=== PATIENT | female | born 1995 | race Caucasian/White ===

== ENCOUNTER 2017-11-01 22:31 | Outpatient (CLI) | payer OTHER, MEDICAID ==
[2017-11-01 23:10] LABS: APPEARANCE,URINE CLEAR; BILIRUBIN,URINE NEGATIVE (NEGATIVE); COLOR,URINE YELLOW; GLUCOSE, URINE NEGATIVE (NEGATIVE); KETONES,URINE NEGATIVE (NEGATIVE); LEUKOCYTE ESTERASE,URINE TRACE (NEGATIVE); NITRITE,URINE NEGATIVE (NEGATIVE); PROTEIN,URINE NEGATIVE (NEGATIVE); URINE SPECIFIC GRAVITY 1.012; UROBILINOGEN,URINE NEGATIVE mg/dL (<2.0)
[2017-11-01 23:31] LABS: URINE AMPHETAMINES SCREEN NEGATIVE; URINE BARBITURATES SCREEN NEGATIVE; URINE BENZODIAZEPINES SCREEN NEGATIVE; URINE COCAINE SCREEN NEGATIVE; URINE MARIJUANA (THC) SCREEN NEGATIVE; URINE METHADONE SCREEN NEGATIVE; URINE PHENCYCLIDINE SCREEN NEGATIVE
--- NOTE | 2017-11-01 23:52 | Non Stress Test Report ---
Non Stress Test Datetime Report Generated by CPN: 11/01/2017 23:52 DEMOGRAPHIC Test Number: 1 EGA NST: 33.0 INDICATION Indication for Study: Ordered by Provider MONITORING Time on Monitor: 11/01/2017 22:52 Time off Monitor: 11/01/2017 23:24 NST Duration: 32 NST INTERVENTIONS NST Interventions: PO Hydration Physician Notified NST: Dr Sosa BABY A: [id number] BABY A Movement : Present Contraction Frequency : irregular FHR Baseline : 140 Accelerations : 15X15 Decelerations : None Variability : Moderate 6-25bpm NST Review: Meets Criteria for Reactive NST NST Review and Verified By : Elana Min RN NST Results: Reactive NST REPORT Report Trigger: Send Report
== END 2017-11-02 00:35 | disposition home or self-care (01) ==
LOC: LC 22:31
PROVIDERS: ATTEND Obstetrics & Gynecology
PROC: 4A1HXCZ Monitoring of Products of Conception, Cardiac Rate, External Approach (ICD-10-PCS; principal; 2017-11-01)
DX: O47.03 False labor before 37 completed weeks of gestation, third trimester (principal); Z3A.33 33 weeks gestation of pregnancy
CPT/HCPCS: 59025; 80307; 81001

== ENCOUNTER 2017-11-06 22:45 | Outpatient (CLI) | payer OTHER, MEDICAID ==
[2017-11-06 23:25] LABS: APPEARANCE,URINE CLEAR; BILIRUBIN,URINE NEGATIVE (NEGATIVE); COLOR,URINE STRAW; GLUCOSE, URINE NEGATIVE (NEGATIVE); KETONES,URINE NEGATIVE (NEGATIVE); LEUKOCYTE ESTERASE,URINE NEGATIVE (NEGATIVE); NITRITE,URINE NEGATIVE (NEGATIVE); PROTEIN,URINE NEGATIVE (NEGATIVE); URINE SPECIFIC GRAVITY 1.003; UROBILINOGEN,URINE NEGATIVE mg/dL (<2.0)
[2017-11-06 23:28] LABS: AMNISURE (ROM) NEGATIVE (NEGATIVE)
[2017-11-06 23:42] LABS: URINE AMPHETAMINES SCREEN NEGATIVE; URINE BARBITURATES SCREEN NEGATIVE; URINE BENZODIAZEPINES SCREEN NEGATIVE; URINE COCAINE SCREEN NEGATIVE; URINE MARIJUANA (THC) SCREEN NEGATIVE; URINE METHADONE SCREEN NEGATIVE; URINE PHENCYCLIDINE SCREEN NEGATIVE
--- NOTE | 2017-11-07 00:08 | Non Stress Test Report ---
Non Stress Test Datetime Report Generated by CPN: 11/07/2017 00:07 DEMOGRAPHIC EGA NST: 33.5 INDICATION Indication for Study: Ordered by Provider VITAL SIGNS Temperature - NST: 97.9 Pulse - NST: 91 RESP - NST: 18 NBPSYS NST: 110 NBPDIA NST: 70 URINE RESULTS Urine Protein, NST: Negative Urine Ketones - NST: Negative Urine Glucose - NST: Negative Urine Blood - NST: Negative MONITORING Monitor Explained: Monitor Explained; Test Explained; Patient Verbalized Understanding Time on Monitor: 11/06/2017 23:00 Time off Monitor: 11/06/2017 23:44 NST Duration: 44 NST INTERVENTIONS NST Interventions: None Physician Notified NST: Dr. José BABY A Movement : Present Contraction Frequency : None FHR Baseline : 135 Accelerations : 15X15 Decelerations : None Variability : Moderate 6-25bpm NST Review: Meets Criteria for Reactive NST NST Review and Verified By : K Ayla RN NST Results: Reactive NST REPORT Report Trigger: Send Report
== END 2017-11-06 23:50 | disposition home or self-care (01) ==
LOC: LC 22:45
PROVIDERS: ATTEND Obstetrics & Gynecology
DX: Z34.90 Encounter for supervision of normal pregnancy, unspecified, unspecified trimester (principal)
CPT/HCPCS: 59025; 80307; 81001; 84112

== ENCOUNTER 2017-11-13 21:59 | Outpatient (CLI) | payer OTHER, MEDICAID ==
[2017-11-13 22:27] LABS: APPEARANCE,URINE CLEAR; BILIRUBIN,URINE NEGATIVE (NEGATIVE); COLOR,URINE YELLOW; GLUCOSE, URINE NEGATIVE (NEGATIVE); KETONES,URINE NEGATIVE (NEGATIVE); LEUKOCYTE ESTERASE,URINE NEGATIVE (NEGATIVE); NITRITE,URINE NEGATIVE (NEGATIVE); PROTEIN,URINE NEGATIVE (NEGATIVE); URINE SPECIFIC GRAVITY 1.009
[2017-11-13] MEDS ORDERED: RINGERS SOLUTION,LACTATED 1,000 ML IV PRN (22:36)
[2017-11-13] MEDS ORDERED: RINGERS SOLUTION,LACTATED 1,000 ML IV ONE (22:36)
[2017-11-13 22:43] LABS: URINE AMPHETAMINES SCREEN NEGATIVE; URINE BARBITURATES SCREEN NEGATIVE; URINE BENZODIAZEPINES SCREEN NEGATIVE; URINE COCAINE SCREEN NEGATIVE; URINE MARIJUANA (THC) SCREEN NEGATIVE; URINE METHADONE SCREEN NEGATIVE; URINE PHENCYCLIDINE SCREEN NEGATIVE
[2017-11-14] MEDS ORDERED: TERBUTALINE SULFATE INJ/PF 1 MG/1 ML SDV SUBCUT ONE (00:15)
[2017-11-14] MEDS ORDERED: TERBUTALINE SULFATE INJ/PF 1 MG/1 ML SDV ONE (00:19)
--- NOTE | 2017-11-14 01:53 | Non Stress Test Report ---
Non Stress Test Datetime Report Generated by CPN: 11/14/2017 01:52 DEMOGRAPHIC EGA NST: 34.5 INDICATION Indication for Study: Ordered by Provider Indication for Study (NST) Other: LC MONITORING Monitor Explained: Monitor Explained; Test Explained; Patient Verbalized Understanding Time on Monitor: 11/13/2017 22:14 Time off Monitor: 11/14/2017 01:36 NST Duration: 202 NST INTERVENTIONS Physician Notified NST: Sosa BABY A: [id number] BABY A Movement : Present Contraction Frequency : see comments FHR Baseline : 135 Accelerations : 15X15 Decelerations : None Variability : Moderate 6-25bpm NST Review: Meets Criteria for Reactive NST NST Review and Verified By : K Ayla RN NST Results: Reactive NST COMMENTS NST Comments: Contractions 1-9 minutes prior to terbutaline administration. after administration of terbutaline contractions have stopped. NST REPORT Report Trigger: Send Report
== END 2017-11-14 01:46 | disposition home or self-care (01) ==
LOC: LC 21:59
PROVIDERS: ATTEND Obstetrics & Gynecology
PROC: 4A1HXCZ Monitoring of Products of Conception, Cardiac Rate, External Approach (ICD-10-PCS; principal; 2017-11-13)
DX: O47.03 False labor before 37 completed weeks of gestation, third trimester (principal); Z3A.34 34 weeks gestation of pregnancy
CPT/HCPCS: 59025; 81001; 80307; J3105

== ENCOUNTER 2017-12-08 11:49 | Outpatient (CLI) | payer MEDICAID ==
[2017-12-08 12:26] LABS: APPEARANCE,URINE SLIGHTLY-CLOUDY; BILIRUBIN,URINE NEGATIVE (NEGATIVE); COLOR,URINE YELLOW; GLUCOSE, URINE NEGATIVE (NEGATIVE); KETONES,URINE NEGATIVE (NEGATIVE); LEUKOCYTE ESTERASE,URINE TRACE (NEGATIVE); NITRITE,URINE NEGATIVE (NEGATIVE); PROTEIN,URINE NEGATIVE (NEGATIVE); URINE SPECIFIC GRAVITY 1.017; UROBILINOGEN,URINE NEGATIVE mg/dL (<2.0)
[2017-12-08 12:34] LABS: AMNISURE (ROM) NEGATIVE (NEGATIVE)
[2017-12-08 12:42] LABS: URINE AMPHETAMINES SCREEN NEGATIVE; URINE BARBITURATES SCREEN NEGATIVE; URINE BENZODIAZEPINES SCREEN NEGATIVE; URINE COCAINE SCREEN NEGATIVE; URINE MARIJUANA (THC) SCREEN NEGATIVE; URINE METHADONE SCREEN NEGATIVE; URINE PHENCYCLIDINE SCREEN NEGATIVE
== END 2017-12-08 12:58 | disposition home or self-care (01) ==
LOC: LC 11:49
PROVIDERS: ATTEND Obstetrics & Gynecology
PROC: 4A1HXCZ Monitoring of Products of Conception, Cardiac Rate, External Approach (ICD-10-PCS; principal; 2017-12-08)
DX: O47.1 False labor at or after 37 completed weeks of gestation (principal); O36.8130 Decreased fetal movements, third trimester, not applicable or unspecified; Z3A.38 38 weeks gestation of pregnancy
CPT/HCPCS: 59025; 80307; 81005; 84112

== ENCOUNTER 2017-12-10 12:51 | Outpatient (CLI) | payer MEDICAID ==
--- NOTE | 2017-12-10 14:26 | Non Stress Test Report ---
Non Stress Test Datetime Report Generated by CPN: 12/10/2017 14:26 DEMOGRAPHIC EGA NST: 38.4 EGA NST: 38.2 INDICATION Indication for Study: Other Indication for Study: Ordered by Provider Indication for Study (NST) Other: LABOR CHECK MONITORING Monitor Explained: Monitor Explained; Test Explained; Patient Verbalized Understanding Monitor Explained: Monitor Explained; Test Explained; Patient Verbalized Understanding Time on Monitor: 12/10/2017 13:16 Time on Monitor: 12/08/2017 12:03 Time off Monitor: 12/10/2017 14:16 NST Duration: 60 NST INTERVENTIONS NST Interventions: PO Hydration; Reposition Patient Physician Notified NST: H MIRIAN, CNM Physician Notified NST: Dr Helena BABY A: [id number] BABY A Movement : Present Movement : Present Contraction Frequency : 6-8 Contraction Frequency : 4-7 FHR Baseline : 140 FHR Baseline : 150 Accelerations : 15X15 Accelerations : 15X15 Decelerations : None Decelerations : None Variability : Moderate 6-25bpm Variability : Moderate 6-25bpm NST Review: Meets Criteria for Reactive NST NST Review: Meets Criteria for Reactive NST NST Review and Verified By : Sandeep kelly RN NST Review and Verified By : Magaly Wilkerson RN NST Results: Reactive NST Results: Reactive NST REPORT Report Trigger: Send Report
[2017-12-10 14:53] LABS: APPEARANCE,URINE SLIGHTLY-CLOUDY; BILIRUBIN,URINE NEGATIVE (NEGATIVE); COLOR,URINE YELLOW; GLUCOSE, URINE NEGATIVE (NEGATIVE); KETONES,URINE NEGATIVE (NEGATIVE); LEUKOCYTE ESTERASE,URINE SMALL (NEGATIVE); NITRITE,URINE NEGATIVE (NEGATIVE); PROTEIN,URINE NEGATIVE (NEGATIVE); URINE SPECIFIC GRAVITY 1.016; UROBILINOGEN,URINE NEGATIVE mg/dL (<2.0)
[2017-12-10 15:17] LABS: URINE AMPHETAMINES SCREEN NEGATIVE; URINE BARBITURATES SCREEN NEGATIVE; URINE BENZODIAZEPINES SCREEN NEGATIVE; URINE COCAINE SCREEN NEGATIVE; URINE MARIJUANA (THC) SCREEN NEGATIVE; URINE METHADONE SCREEN NEGATIVE; URINE PHENCYCLIDINE SCREEN NEGATIVE
== END 2017-12-10 14:27 | disposition home or self-care (01) ==
LOC: LC 12:51
PROVIDERS: ATTEND Obstetrics & Gynecology
PROC: 4A1HXCZ Monitoring of Products of Conception, Cardiac Rate, External Approach (ICD-10-PCS; principal; 2017-12-10)
DX: O47.1 False labor at or after 37 completed weeks of gestation (principal); Z3A.38 38 weeks gestation of pregnancy
CPT/HCPCS: 59025; 81005; 80307; Q0114

== ENCOUNTER 2017-12-10 23:00 | Outpatient (CLI) | payer MEDICAID ==
[2017-12-10 23:34] LABS: APPEARANCE,URINE SLIGHTLY-CLOUDY; BILIRUBIN,URINE NEGATIVE (NEGATIVE); COLOR,URINE YELLOW; GLUCOSE, URINE NEGATIVE (NEGATIVE); KETONES,URINE NEGATIVE (NEGATIVE); LEUKOCYTE ESTERASE,URINE TRACE (NEGATIVE); NITRITE,URINE NEGATIVE (NEGATIVE); PROTEIN,URINE NEGATIVE (NEGATIVE); URINE SPECIFIC GRAVITY 1.019
[2017-12-10 23:48] LABS: URINE AMPHETAMINES SCREEN NEGATIVE; URINE BARBITURATES SCREEN NEGATIVE; URINE BENZODIAZEPINES SCREEN NEGATIVE; URINE COCAINE SCREEN NEGATIVE; URINE MARIJUANA (THC) SCREEN NEGATIVE; URINE METHADONE SCREEN NEGATIVE; URINE PHENCYCLIDINE SCREEN NEGATIVE
--- NOTE | 2017-12-11 00:01 | Non Stress Test Report ---
Non Stress Test Datetime Report Generated by CPN: 12/11/2017 00:00 DEMOGRAPHIC Test Number: 5 EGA NST: 38.4 INDICATION Indication for Study: Ordered by Provider URINE RESULTS Urine Protein, NST: Negative Urine Ketones - NST: Negative Urine Glucose - NST: Negative Urine Blood - NST: Positive MONITORING Monitor Explained: Monitor Explained; Test Explained; Patient Verbalized Understanding Time on Monitor: 12/10/2017 23:13 Time off Monitor: 12/10/2017 23:50 NST Duration: 37 NST INTERVENTIONS NST Interventions: PO Hydration; Reposition Patient Physician Notified NST: Dr. Sosa BABY A: [id number] BABY A Movement : Present; Decreased Contraction Frequency : occasional FHR Baseline : 125 Accelerations : 15X15 Decelerations : None Variability : Moderate 6-25bpm NST Review: Meets Criteria for Reactive NST NST Review and Verified By : Mario Singh RN NST Results: Reactive NST REPORT Report Trigger: Send Report
== END 2017-12-11 01:11 | disposition home or self-care (01) ==
LOC: LC 23:00
PROVIDERS: ATTEND Obstetrics & Gynecology
PROC: 4A1HXCZ Monitoring of Products of Conception, Cardiac Rate, External Approach (ICD-10-PCS; principal; 2017-12-10)
DX: O47.1 False labor at or after 37 completed weeks of gestation (principal); Z3A.38 38 weeks gestation of pregnancy
CPT/HCPCS: 59025; 80307; 81005

== ENCOUNTER 2017-12-20 13:45 | Outpatient (CLI) | payer OTHER, MEDICAID ==
[2017-12-20 14:29] LABS: APPEARANCE,URINE SLIGHTLY-CLOUDY; BILIRUBIN,URINE NEGATIVE (NEGATIVE); COLOR,URINE YELLOW; GLUCOSE, URINE NEGATIVE (NEGATIVE); KETONES,URINE NEGATIVE (NEGATIVE); LEUKOCYTE ESTERASE,URINE MODERATE (NEGATIVE); NITRITE,URINE NEGATIVE (NEGATIVE); PROTEIN,URINE NEGATIVE (NEGATIVE); URINE SPECIFIC GRAVITY 1.012; UROBILINOGEN,URINE NEGATIVE mg/dL (<2.0)
[2017-12-20 14:54] LABS: URINE AMPHETAMINES SCREEN NEGATIVE; URINE BARBITURATES SCREEN NEGATIVE; URINE BENZODIAZEPINES SCREEN NEGATIVE; URINE COCAINE SCREEN NEGATIVE; URINE MARIJUANA (THC) SCREEN NEGATIVE; URINE METHADONE SCREEN NEGATIVE; URINE PHENCYCLIDINE SCREEN NEGATIVE
--- NOTE | 2017-12-20 15:56 | Non Stress Test Report ---
Non Stress Test Datetime Report Generated by CPN: 12/20/2017 15:56 DEMOGRAPHIC EGA NST: 40.0 EGA NST: 40.0 INDICATION Indication for Study: Ordered by Provider Indication for Study: Ordered by Provider MONITORING Monitor Explained: Monitor Explained; Test Explained; Patient Verbalized Understanding Monitor Explained: Monitor Explained; Test Explained; Patient Verbalized Understanding Time on Monitor: 12/20/2017 15:18 Time on Monitor: 12/20/2017 13:57 Time off Monitor: 12/20/2017 15:48 Time off Monitor: 12/20/2017 14:31 NST Duration: 30 NST Duration: 34 NST INTERVENTIONS NST Interventions: PO Hydration; Reposition Patient NST Interventions: PO Hydration; Reposition Patient Physician Notified NST: CTashia Morse, CNM Physician Notified NST: Sandeep Morse CNM BABY A: [id number] BABY A Movement : Present Movement : Present Contraction Frequency : 3-5 Contraction Frequency : 3-4 FHR Baseline : 135 FHR Baseline : 135 Accelerations : 15X15 Accelerations : 15X15 Decelerations : None Variability : Moderate 6-25bpm Variability : Moderate 6-25bpm NST Review: Meets Criteria for Reactive NST NST Review: Meets Criteria for Reactive NST NST Review and Verified By : Elsa Talamantes RNC NST Review and Verified By : Lin John RN NST Results: Reactive NST Results: Reactive NST COMMENTS NST Comments: Provider reviewed strip NST Comments: Provider reviewed strip NST REPORT Report Trigger: Send Report
== END 2017-12-20 15:53 | disposition home or self-care (01) ==
LOC: LC 13:45
PROVIDERS: ATTEND Obstetrics & Gynecology
PROC: 4A1HXCZ Monitoring of Products of Conception, Cardiac Rate, External Approach (ICD-10-PCS; principal; 2017-12-20)
DX: O47.1 False labor at or after 37 completed weeks of gestation (principal); O48.0 Post-term pregnancy; Z3A.40 40 weeks gestation of pregnancy
CPT/HCPCS: 59025; 80307; 81001

== ENCOUNTER 2017-12-22 21:41 | Outpatient (CLI) | payer OTHER, MEDICAID ==
--- NOTE | 2017-12-23 00:15 | Non Stress Test Report ---
Non Stress Test Datetime Report Generated by CPN: 12/23/2017 00:15 DEMOGRAPHIC EGA NST: 40.2 INDICATION Indication for Study: Other Indication for Study (NST) Other: lc MONITORING Monitor Explained: Monitor Explained; Test Explained; Patient Verbalized Understanding Time on Monitor: 12/22/2017 22:00 Time off Monitor: 12/22/2017 23:00 NST Duration: 60 NST INTERVENTIONS NST Interventions: PO Hydration; Reposition Patient Physician Notified NST: Dr Mcadams BABY A: [id number] BABY A Movement : Present Contraction Frequency : irreg FHR Baseline : 130 Accelerations : 15X15 Decelerations : None Variability : Moderate 6-25bpm NST Review: Meets Criteria for Reactive NST NST Review and Verified By : B. Ring RN NST Results: Reactive NST REPORT Report Trigger: Send Report
== END 2017-12-23 00:16 | disposition home or self-care (01) ==
LOC: LC 21:41
PROVIDERS: ATTEND Obstetrics & Gynecology
PROC: 4A1HXCZ Monitoring of Products of Conception, Cardiac Rate, External Approach (ICD-10-PCS; principal; 2017-12-22)
DX: O47.1 False labor at or after 37 completed weeks of gestation (principal); O48.0 Post-term pregnancy; Z3A.40 40 weeks gestation of pregnancy

== ENCOUNTER 2017-12-23 02:17 | Outpatient (CLI) | payer OTHER, MEDICAID ==
[2017-12-23] MEDS ORDERED: NALBUPHINE HCL INJ 10 MG/1 ML AMPULE IM ONE (03:47)
[2017-12-23 03:51] LABS: APPEARANCE,URINE SLIGHTLY-CLOUDY; BILIRUBIN,URINE NEGATIVE (NEGATIVE); COLOR,URINE YELLOW; GLUCOSE, URINE NEGATIVE (NEGATIVE); KETONES,URINE 20 mg/dL (NEGATIVE); LEUKOCYTE ESTERASE,URINE LARGE (NEGATIVE); NITRITE,URINE NEGATIVE (NEGATIVE); PROTEIN,URINE NEGATIVE (NEGATIVE); URINE SPECIFIC GRAVITY 1.012
[2017-12-23] MEDS ORDERED: NALBUPHINE HCL INJ 10 MG/1 ML AMPULE ONE (03:52)
[2017-12-23 04:09] LABS: URINE AMPHETAMINES SCREEN NEGATIVE; URINE BARBITURATES SCREEN NEGATIVE; URINE BENZODIAZEPINES SCREEN NEGATIVE; URINE COCAINE SCREEN NEGATIVE; URINE MARIJUANA (THC) SCREEN NEGATIVE; URINE METHADONE SCREEN NEGATIVE; URINE PHENCYCLIDINE SCREEN NEGATIVE
--- NOTE | 2017-12-23 04:25 | Non Stress Test Report ---
Non Stress Test Datetime Report Generated by CPN: 12/23/2017 04:25 DEMOGRAPHIC EGA NST: 40.3 INDICATION Indication for Study: Ordered by Provider Indication for Study (NST) Other: LC URINE RESULTS Urine Protein, NST: Negative Urine Ketones - NST: Positive Urine Glucose - NST: Negative Urine Blood - NST: Negative MONITORING Monitor Explained: Monitor Explained; Test Explained; Patient Verbalized Understanding Time on Monitor: 12/23/2017 03:14 Time off Monitor: 12/23/2017 03:54 NST Duration: 40 NST INTERVENTIONS NST Interventions: PO Hydration; Reposition Patient Physician Notified NST: Dr. Mcadams BABY A Movement : Present Contraction Frequency : 2-5.5 FHR Baseline : 135 Accelerations : 15X15 Decelerations : None Variability : Moderate 6-25bpm NST Review: Meets Criteria for Reactive NST NST Review and Verified By : Janneth Lott RN NST Results: Reactive NST REPORT Report Trigger: Send Report
[2017-12-23 19:41] LABS: APPEARANCE,URINE CLEAR; BILIRUBIN,URINE NEGATIVE (NEGATIVE); COLOR,URINE YELLOW; GLUCOSE, URINE NEGATIVE (NEGATIVE); KETONES,URINE NEGATIVE (NEGATIVE); LEUKOCYTE ESTERASE,URINE SMALL (NEGATIVE); NITRITE,URINE NEGATIVE (NEGATIVE); PROTEIN,URINE NEGATIVE (NEGATIVE); URINE SPECIFIC GRAVITY 1.003; UROBILINOGEN,URINE NEGATIVE mg/dL (<2.0)
[2017-12-23 20:03] LABS: URINE AMPHETAMINES SCREEN NEGATIVE; URINE BARBITURATES SCREEN NEGATIVE; URINE BENZODIAZEPINES SCREEN NEGATIVE; URINE COCAINE SCREEN NEGATIVE; URINE MARIJUANA (THC) SCREEN NEGATIVE; URINE METHADONE SCREEN NEGATIVE; URINE PHENCYCLIDINE SCREEN NEGATIVE
== END 2017-12-23 04:02 | disposition home or self-care (01) ==
LOC: LC 02:17
PROVIDERS: ATTEND Obstetrics & Gynecology
PROC: 4A1HXCZ Monitoring of Products of Conception, Cardiac Rate, External Approach (ICD-10-PCS; principal; 2017-12-23)
DX: O47.1 False labor at or after 37 completed weeks of gestation (principal); O48.0 Post-term pregnancy; Z3A.40 40 weeks gestation of pregnancy
CPT/HCPCS: 59025; 81005; 80307; J2300

== ENCOUNTER 2017-12-23 19:14 | Inpatient (IN) | payer OTHER, MEDICAID ==
[2017-12-23] MEDS ORDERED: RINGERS SOLUTION,LACTATED 1,000 ML IV PRN (19:41)
[2017-12-23] MEDS ORDERED: FENTANYL CITRATE INJ/PF 100 MCG/2 ML AMPUL ONE (20:12)
[2017-12-23] MEDS ORDERED: OXYTOCIN/NORMAL SALINE 20 UNIT/1,000 ML RTUINJ ONE (20:13)
[2017-12-23] MEDS ORDERED: LIDOCAINE 1% INJ-PF (10 MG/ML) 30 ML SDV ONE (20:13)
[2017-12-23] MEDS ORDERED: EPHEDRINE SULFATE INJ 50 MG/1 ML AMPULE ONE (20:13)
[2017-12-23] MEDS ORDERED: BUPIVACAINE HCL 0.25 % INJ/PF (2.5 MG/1 ML) 30 ML VIAL ONE (20:13)
[2017-12-23] MEDS ORDERED: FENTANYL/BUPIVACAINE/NS/PF 200 MCG/100 ML RTUINJ EPI ONE (20:13)
[2017-12-23] MEDS ORDERED: MISOPROSTOL 0.2 MG TABLET ONE (20:13)
[2017-12-23] MEDS ORDERED: PHENYLEPHRINE HCL INJ/PF 10 MG/1 ML SDV ONE (20:13)
[2017-12-23 21:26] LABS: ABSOLUTE LYMPHOCYTES (AUTO) 1.3 10^3/uL (0.5-4.7); ABSOLUTE MONOCYTES (AUTO) 0.9 10^3/uL (0.1-1.4); ABSOLUTE NEUT (AUTO) 11.8 10^3/uL (1.7-8.2); BASOPHILS % (AUTO) 0.2 % (0-2); EOSINOPHILS % (AUTO) 0.3 % (0-6); HEMATOCRIT 31.4 % (36.0-47.0); HEMOGLOBIN 10.4 g/dL (12.0-15.5); LYMPHOCYTES % (AUTO) 9.4 % (13-45); MEAN CORPUSCULAR HEMOGLOBIN 25.3 pg (27.0-33.4); MEAN CORPUSCULAR VOLUME 77 fl (80-97); MONOCYTES % (AUTO) 6.6 % (3-13); PLATELET COUNT 148 10^3/uL (150-450); RED CELL DISTRIBUTION WIDTH 15.1 % (11.5-14.0); SEGMENTED NEUTROPHILS % (AUTO) 83.5 % (42-78); TOTAL CELLS COUNTED % (AUTO) 100 %; WHITE BLOOD COUNT 14.1 10^3/uL (4.0-10.5)
[2017-12-23] MEDS ORDERED: OXYTOCIN/NORMAL SALINE 20 UNIT/1,000 ML RTUINJ IV PRN (23:32)
--- NOTE | 2017-12-24 00:46 | L&D Progress Notes ---
PROGRESS NOTES Datetime Report Generated by CPN: 12/24/2017 00:46 PROGRESS NOTE Impression: Normal Progression of Labor Impression: Normal Progression of Labor Procedures: Artificial ROM; Sterile Vag Exam Procedures: Artificial ROM; Sterile Vag Exam Plan: Continue Present Management; Augmentation Plan: Continue Present Management; Augmentation Informed Consent Obtained: Vaginal Delivery; Risks, Benefits and Alternatives Discussed Informed Consent Obtained: Vaginal Delivery; Risks, Benefits and Alternatives Discussed Vital Signs : Reviewed Comment: Admitted at 5cm and with regular uterine contractions. However, after bolus for epidural contractions decreased in frequency. Pitcoin initiated. AROM with clear fluid noted. Continue with augmentation of labor. Anticpate . VAGINAL EXAM Dilatation: 7 Dilatation: 5 Effacement: 100 Effacement: 90 Station: 0 Station: 0 Contractions: irreg Contractions: q 3 FETUS A FHR - Baseline: 150 Monitoring: External US Accelerations: 15X15 Decelerations: None FHR Category: Category I Presentation: Vertex SIGNATURE SIGNATURE: [id number] SIGNATURE: [id number] SIGNATURE: [id number] SIGNATURE: [id number] SIGNATURE: [id number] SIGNATURE: [id number] SIGNATURE: [id number] SIGNATURE: [id number] SIGNATURE: [id number] Signature: with User ID: [email or web address]
[2017-12-24] MEDS ORDERED: PROMETHAZINE HCL 25 MG SUPP.RECT PR PRN (03:30)
[2017-12-24] MEDS ORDERED: DIBUCAINE 1% OINTMENT 28 GM TP PRN (03:30)
[2017-12-24] MEDS ORDERED: ZOLPIDEM TARTRATE 5 MG TABLET PO PRN (03:30)
[2017-12-24] MEDS ORDERED: MAGNESIUM HYDROXIDE SUSP 30 ML UDCUP PO PRN (03:30)
[2017-12-24] MEDS ORDERED: BENZOCAINE/MENTHOL AEROSOL SPRAY 56 ML TOP PRN (03:30)
[2017-12-24] MEDS ORDERED: NA PHOS,M-B/NA PHOS,DI-BA (ADULT) 133 ML ENEMA PR PRN (03:30)
[2017-12-24] MEDS ORDERED: PROMETHAZINE HCL INJ 25 MG/1 ML VIAL IV PRN (03:30)
[2017-12-24] MEDS ORDERED: MEASLES,MUMPS&RUBELLA VACC/PF 0.5 ML VIAL SUBCUT PRN (03:30)
[2017-12-24] MEDS ORDERED: PROMETHAZINE HCL 25 MG TABLET PO PRN (03:30)
[2017-12-24] MEDS ORDERED: DIPHENHYDRAMINE HCL 25 MG CAPSULE PO PRN (03:30)
[2017-12-24] MEDS ORDERED: DIPH/PERTUSS(ACELL)/TETANUS VAC/PF 0.5 ML SYR (>=10YO) IM PRN (03:30)
[2017-12-24] MEDS ORDERED: PSEUDOEPHEDRINE HCL 30 MG TABLET PO PRN (03:30)
[2017-12-24] MEDS ORDERED: GLYCERIN/WITCH HAZEL LEAF 1 EACH MED..PAD TP PRN (03:30)
[2017-12-24] MEDS ORDERED: OXYTOCIN/NORMAL SALINE 20 UNIT/1,000 ML RTUINJ IV PRN (03:30)
[2017-12-24] MEDS ORDERED: MISOPROSTOL 0.2 MG TABLET PR ONE (03:30)
[2017-12-24] MEDS ORDERED: ACETAMINOPHEN 325 MG TABLET PO PRN (03:30)
[2017-12-24] MEDS ORDERED: IBUPROFEN 800 MG TABLET ONE (04:51)
--- NOTE | 2017-12-24 05:04 | Warning Signs in Babies ---
VOD Warning Signs Datetime Report Generated by [facility]: 12/24/2017 05:04 VOD#608 -Warning Signs in Babies: Viewed with Parent(s)/Family (11/01/2017 22:34:Irma Rain RN)
--- NOTE | 2017-12-24 05:05 | Warning Signs in Babies ---
VOD Warning Signs Datetime Report Generated by [facility]: 12/24/2017 05:05 VOD#608 -Warning Signs in Babies: Viewed with Parent(s)/Family (11/01/2017 22:34:Irma Rain RN)
[2017-12-24] MEDS: IBUPROFEN 800 MG TABLET PO SCH ×3 (05:22→21:53)
--- NOTE | 2017-12-24 05:49 | Delivery Summary ---
Del Sum A-C Datetime Report Generated by CPN: 12/24/2017 05:49 DELIVERY PERSONNEL DELIVERY PERSONNEL: [id number] Delivery Doctor:: Montse Varghese MD Anesthesiologist:: Kait Meyer MD Labor and Delivery Nurse:: Irma Rain RN Literacy Education Professor/SOFTWARE APPLICATIONS ENGINEER: Iza Falcongerald, ST MATERNAL INFORMATION Delivery Anesthesia: Epidural Medications After Delivery: Pitocin Drip 20 Units/1000ml NSS Estimated Blood Loss (ml): 400 Maternal Complications: None Provider Comments: VFI delivered in JANY presentation with tight nuchal cord delivered through. Shoulders and body delivered without difficulty. Cord doubly clamped and cut. Infant to maternal abdomen for NRP. Lower uterine segment began to close and placenta would not easily deliver therefore manually removed. F at U. Good hemostasis. IV lost just prior to delivery of placenta. Cytotec 1000mcg ME given. 1st degree superficial laceration repaired in usual fahsion. Mother and baby stable upon provider leaving the room. LABOR SUMMARY EDC: 12/20/2017 00:00 No. Babies in Womb: 1 Attempted: No Labor Anesthesia: Epidural LABOR INFORMATION Reason for Induction: Not Applicable Onset of Labor: 12/23/2017 19:17 Complete Dilatation: 12/24/2017 01:51 Oxytocin: Augmentation Group B Beta Strep: Negative Antibiotics # of Doses: 0 Steroids Given: None Reason Steroids Not Administered: Not Applicable MEMBRANES Membranes Rupture Method: Artificial Amniotic Fluid Color: Clear Amniotic Fluid Amount: Moderate Amniotic Fluid Odor: Normal STAGES OF LABOR Stage 1 hr: 6 Stage 1 min: 34 Stage 2 hr: 1 Stage 2 min: 8 Stage 3 hr: 0 Stage 3 min: 6 Total Time in Labor hr: 7 Total Time in Labor min: 48 VAGINAL DELIVERY Episiotomy: None Laceration #1: Perineal Laceration Extension #1: First Degree Other Laceration: n/a Laceration Repair: Yes Laceration Repair Note: 1st degree laceration repaired in usual fashion. Good hemostasis Initial Vag Sponge Count: 0 Final Vag Sponge Count: 0 Initial Vag Sharps Count: 0 Final Vag Sharps Count: 0 Sponge Count Correct: Yes Sharps Count Correct: Yes CSECTION DELIVERY Primary Indication: N/A Secondary Indication: N/A CSection Incidence: N/A Labor: N/A Elective: N/A CSection Incision: N/A BABY A INFORMATION Infant Delivery Date/Time: 12/24/2017 02:59 Method of Delivery: Vaginal Born in Route : No : N/A Forceps: N/A Vacuum Extraction: N/A Shoulder Dystocia : No PRESENTATION/POSITION BABY A Presentation: Cephalic Cephalic Presentation: Vertex Vertex Position: Left Occipital Anterior Breech Presentation: N/A PLACENTA INFORMATION BABY A Placenta Delivery Time : 12/24/2017 03:05 Placenta Method of Delivery: Manual Removal Placenta Status: Delivered SCORES BABY A Heart Rate 1 min: >100 bpm Resp Effort 1 min: Good Cry Reflex Irritability 1 min: Cough or Sneeze or Pulls Away Muscle Tone 1 min: Active Motion Color 1 min: Body Mora, Extremities Blue SCORE 1 MIN: 9 Heart Rate 5 min: >100 bpm Resp Effort 5 min: Good Cry Reflex Irritability 5 min: Cough or Sneeze or Pulls Away Muscle Tone 5 min: Active Motion Color 5 min: Body Mora, Extremities Blue SCORE 5 MIN: 9 INFANT INFORMATION BABY A Infant Outcome : Liveborn Condition : Stable Sex: Female IDENTIFICATION BABY A Infant Verification Date/Time: 12/24/2017 03:45 ID Band Number: [id number] Mother's Name Verified: Yes Infant RN Verifying Infant: NDoyle RN Additional Verifying Personnel: TEdwards RN WEIGHT/LENGTH BABY A Infant Birthweight (gm): 3160 Weight (lb): 6 Infant Weight (oz): 15 Length (in): 19.00 Length (cm): 48.26 CORD INFORMATION BABY A No. Cord Vessels: 3 Nuchal Cord : Around Neck x1, Tight Cord Blood Taken: Yes-For Eval (Mom's Blood Type - or O+) Suction: Mouth; Nose ASSESSMENT BABY A Skin to Skin: Yes Infant Care By: LWebb RN. See LWebb note for assesment. BABY B INFORMATION : N/A SIGNATURES Signature: with User ID: [email or web address]
[2017-12-24] MEDS ORDERED: CEFAZOLIN 2 GM/D5W RTU 2 GM/50 ML RTUPB IV ONE (06:45)
--- NOTE | 2017-12-24 09:26 | Admission Physical ---
Datetime Report Generated by CPN: 12/24/2017 09:26 CURRENT ADMISSION Chief Complaint: Uterine Contractions Indication for Induction: Not Applicable Indication for Induction: Term, Intrauterine ; Active Labor Admit Plan: Admit to Unit; Initiate Labor Protocol ALLERGIES Medication Allergies: Yes Medication Allergies: codeine/SD (12/23/2017); sertraline/SD (12/23/2017) Medication Allergies: codeine/SD (12/20/2017); sertraline/SD (12/20/2017) Medication Allergies: codeine/SD (12/10/2017); sertraline/SD (12/10/2017) Medication Allergies: codeine/SD (11/13/2017); sertraline/SD (11/13/2017) Medication Allergies: codeine/SD (11/06/2017); sertraline/SD (11/06/2017) Medication Allergies: codeine/SD (11/01/2017); sertraline/SD (11/01/2017) Latex: No Latex Allergies Food Allergies: none Environmental Allergies: none OBSTETRICAL HISTORY EDC: 12/20/2017 00:00 : 2 Para: 0 Term: 0 : 0 SAB: 1 IAB: 0 Ectopic: 0 Livin Cesareans: 0 VBACs: 0 Multiple Births: 0 Gestational Diabetes: No Rh Sensitization: No Incompetent Cervix: No LAKHWINDER: No Infertility: No ART Treatment: No Uterine Anomaly: No IUGR: No Hx Previous C/S: No Macrosomia: No Hx Loss/Stillborn: No PIH: No Hx : No Placenta Previa/Abruption: No Depression/PP Depression: No PTL/PROM: No Post Hemorrhage: No Current Procedures: Ultrasound; NST Obstetrical History Comments: G1: 2015 SAB 11 weeks G2: Current SEE RECORDS Alcohol: No Marijuana : No Cocaine: No Other Illicit Drugs: No Cigarettes: Never Smoker. [id number] MEDICAL HISTORY Diabetes: No Blood Transfusion: No Pulmonary Disease (Asthma, TB): No Breast Disease: No Hypertension: No Plant Manager Surgery: No Heart Disease: No Hosp/Surgery: No Autoimmune Disorder: No Anesthetic Complications: No Kidney Disease: No Abnormal Pap Smear: No Neuro/Epilepsy: No Psychiatric Disorders: No Other Medical Diseases: No Hepatitis/Liver Disease: No Significant Family History: No Varicosities/Phlebitis: No Trauma/Violence : No Thyroid Dysfunction: No INFECTIOUS HISTORY Gonorrhea: No Genital Herpes: No Chlamydia: No Tuberculosis: No Syphilis: No Hepatitis: No HIV/AIDS Exposure: No Rash or Viral Illness: No HPV: No PHYSICAL EXAM General: Normal HEENT: Normal Neurologic: Normal Thyroid: Deferred Heart: Normal Lungs: Normal Breast: Deferred Back: Normal Abdomen: Normal Genitourinary Exam: Normal Extremities: Normal DTRs: Normal Pelvic Type: Adequate Vital Signs: Reviewed VAGINAL EXAM Dilatation: 7 Dilatation: 5 Effacement: 100 Effacement: 90 Station: 0 Station: 0 Contraction Comments: irreg Contraction Comments: q 3 FETUS A EGA: 40.3 Monitoring: External US FHR- Baseline: 155 Variability: Moderate 6-25bpm Accelerations: 15X15 Decelerations: None FHR Category: Category I Presentation: Vertex Admit Comment: 22yo G [id number] at 40+3ega presents for regular uterine contractions. Cvx changed from prior presentation yesterday. Pt with cervical change and regular uterine contractions. c/b/ transfer from [facility] at 29wks. o/w uncomplicated. Admit to L_D. uncomplicated. Admit for delivery. Pelvis adequate for ARMAAN. Reassuring FWB PLANS FOR LABOR AND DELIVERY Labor and Delivery: None Pain Management: Epidural Feeding Preference: Breast Benefit of Breast Feed Discussed: Yes Circumcision: N/A INFORMED CONSENT Informed Consent Obtained: Vaginal Delivery; Risks, Benefits and Alternatives Discussed Informed Consent Obtained: Vaginal Delivery; Risks, Benefits and Alternatives Discussed Signature: with User ID: [email or web address]
[2017-12-24] MEDS: AMPICILLIN SODIUM/SULBACTAM NA 3 GM in NORMAL SALINE 100 ML IV SCH ×3 (10:55→21:54)
[2017-12-24] MEDS: FAMOTIDINE 20 MG TABLET PO SCH ×2 (11:00→21:54)
[2017-12-24] MEDS: DOCUSATE SODIUM 100 MG CAPSULE PO SCH ×2 (11:00→17:52)
[2017-12-24] MEDS: FERROUS SULFATE 325 MG TABLET PO SCH ×2 (11:00→17:52)
[2017-12-24] MEDS: SENNOSIDES/DOCUSATE 8.6-50 MG 1 EACH TABLET PO SCH (11:00)
[2017-12-24] MEDS: PRENATAL VITAMIN W DHA CAPSULE PO SCH (11:00)
[2017-12-24] MEDS ORDERED: AMPICILLIN SOD/SULBACTAM 3 GM VIAL IV SCH (12:00)
[2017-12-25] MEDS: AMPICILLIN SODIUM/SULBACTAM NA 3 GM in NORMAL SALINE 100 ML IV SCH ×2 (03:46→11:04)
[2017-12-25] MEDS: IBUPROFEN 800 MG TABLET PO SCH ×2 (05:47→13:10)
[2017-12-25 08:01] LABS: MEAN CORPUSCULAR HEMOGLOBIN 25.7 pg (27.0-33.4); MEAN CORPUSCULAR HGB CONC 33.2 g/dL (32.0-36.0); MEAN CORPUSCULAR VOLUME 78 fl (80-97); PLATELET COUNT 111 10^3/uL (150-450); RED BLOOD COUNT 3.49 10^6/uL (3.72-5.28); RED CELL DISTRIBUTION WIDTH 15.3 % (11.5-14.0); WHITE BLOOD COUNT 10.3 10^3/uL (4.0-10.5)
--- NOTE | 2017-12-25 10:21 | PDOC PROGRESS REPORT ---
Subjective-OB Progress Note for:: 12/25/17 Subjective: s/p day #1 Denies concerns, states lochia is stable, voiding without difficulty, pain well controlled. Physical Exam (OB) Vital Signs: Temp Pulse Resp BP Pulse Ox 97.8 F 83 16 115/48 L 100 12/25/17 03:47 12/25/17 03:47 12/25/17 03:47 12/25/17 03:47 12/25/17 03:47 Intake & Output 12/24/17 12/25/17 12/26/17 06:59 06:59 06:59 Intake Total 710 Balance 710 Weight 67 kg - Lochia Lochia Amount: Scant < 10 ml Lochia Color: Rubra/Red - Abdomen Description: Soft Hernia Present: No Fundal Description: Firm, Midline Fundal Height: u/u - u/2 Objective-Diagnostic Laboratory: 12/25/17 07:39 12/25/17 07:39 WBC 10.3 RBC 3.49 L Hgb 9.0 L Hct 27.0 L MCV 78 L MCH 25.7 L MCHC 33.2 RDW 15.3 H Plt Count 111 L Assessment and Plan(PN) - Assessment and Plan (1) Obstetrical laceration, first degree Is this a current diagnosis for this admission?: Yes Plan: routine pp care (2) Vaginal delivery Is this a current diagnosis for this admission?: Yes Plan: routine pp care (3) Acute blood loss anemia Is this a current diagnosis for this admission?: Yes Plan: ferrous sulfate increase dietary iron - Time Spent with Patient Time with patient: Less than 15 minutes Critical Time spent with patient: Less than 15 minutes Medications reviewed and adjusted accordingly: Yes - Disposition Anticipated Discharge: Home Within: within 24 hours
[2017-12-25] MEDS: DOCUSATE SODIUM 100 MG CAPSULE PO SCH ×2 (11:03→18:18)
[2017-12-25] MEDS: PRENATAL VITAMIN W DHA CAPSULE PO SCH (11:03)
[2017-12-25] MEDS: SENNOSIDES/DOCUSATE 8.6-50 MG 1 EACH TABLET PO SCH (11:03)
[2017-12-25] MEDS: FAMOTIDINE 20 MG TABLET PO SCH (11:04)
[2017-12-25] MEDS: FERROUS SULFATE 325 MG TABLET PO SCH ×2 (11:04→18:18)
--- NOTE | 2017-12-25 11:28 | PDOC DISCHARGE SUMMARY ---
Final Diagnosis Discharge Date: 12/25/17 - Final Diagnosis (1) Obstetrical laceration, first degree Is this a current diagnosis for this admission?: Yes (2) Vaginal delivery Is this a current diagnosis for this admission?: Yes (3) Acute blood loss anemia Is this a current diagnosis for this admission?: Yes Discharge Data - Discharge Medication Prescriptions: Docusate Sodium [Colace 100 mg Capsule] 100 mg PO BID #60 capsule Ferrous Sulfate [Feosol 325 mg Tablet] 325 mg PO BID #60 tablet Ibuprofen [Motrin 800 mg Tablet] 800 mg PO Q8 #60 tablet Home Medications: Pnv,Calcium 72/Iron/Folic Acid [ Plus Tablet] 1 each PO DAILY 11/01/17 Docusate Sodium [Colace 100 mg Capsule] 100 mg PO BID #60 capsule 12/25/17 Ferrous Sulfate [Feosol 325 mg Tablet] 325 mg PO BID #60 tablet 12/25/17 Ibuprofen [Motrin 800 mg Tablet] 800 mg PO Q8 #60 tablet 12/25/17 Gestational Age: 40.3 Reason(s) for Admission: Onset of Labor Procedures: NST Intrapartum Procedure(s): Spontaneous Vaginal Delivery - Data Baby 1 at 1 minute: 9 at 5 minutes: 9 Weight: 3160 kg Home with Mother: Yes Complications: Yes - temp after delivery - Diagnosis Test Laboratory: Temp Pulse Resp BP Pulse Ox 97.8 F 83 16 115/48 L 100 12/25/17 03:47 12/25/17 03:47 12/25/17 03:47 12/25/17 03:47 12/25/17 03:47 12/23/17 12/25/17 20:40 07:39 RBC 4.10 3.49 L Hgb 10.4 L 9.0 L Hct 31.4 L 27.0 L - Discharge information/Instructions Discharge Activity: Activity As Tolerated, Pelvic Rest, No tub bath Discharge Diet: Regular Disposition: HOME, SELF-CARE Follow up with: [facility] in: 4, Weeks
[2017-12-25 16:29] VITALS: BP 120/63
== END 2017-12-25 21:00 | disposition home or self-care (01) | DRG 775 ==
LOC: LC 19:14 → LR 19:39 → 2S 12-24 05:32
PROVIDERS: ADMIT Student in an Organized Health Care Education/Training Program; ATTEND Student in an Organized Health Care Education/Training Program
PROC: 10907ZC Drainage of Amniotic Fluid, Therapeutic from Products of Conception, Via Natural or Artificial Opening (ICD-10-PCS; 2017-12-23)
PROC: 4A1HXCZ Monitoring of Products of Conception, Cardiac Rate, External Approach (ICD-10-PCS; 2017-12-23)
PROC: 10E0XZZ Delivery of Products of Conception, External Approach (ICD-10-PCS; principal; 2017-12-24)
PROC: 0HQ9XZZ Repair Perineum Skin, External Approach (ICD-10-PCS; 2017-12-24)
DX: O69.1XX0 Labor and delivery complicated by cord around neck, with compression, not applicable or unspecified (principal); D62 Acute posthemorrhagic anemia; O70.0 First degree perineal laceration during delivery; O99.02 Anemia complicating childbirth; Z88.6 Allergy status to analgesic agent; Z3A.40 40 weeks gestation of pregnancy; Z37.0 Single live birth
CPT/HCPCS: 36415; 85025; 85027; 86592; 86850; 86900; 86901; 94760; J0295; J0690; J2370; J2590; J3010; J3490

== ENCOUNTER 2019-04-16 10:05 | Emergency (ER) | payer MEDICAID, OTHER ==
[2019-04-16] MEDS ORDERED: NORMAL SALINE 1000 ML 1,000 ML IV ONE (10:17)
[2019-04-16] MEDS ORDERED: ONDANSETRON HCL INJ/PF 4 MG/2 ML SDV IV ONE (10:17)
--- NOTE | 2019-04-16 10:19 | ER Document Report ---
ED Medical Screen (RME) - General Chief Complaint: Abdominal Pain Stated Complaint: STOMACH PAIN Time Seen by Provider: 04/16/19 10:13 Primary Care Provider: LOCO JHA MD [Primary Care Provider] - Follow up as needed Information source: Patient Notes: 24-year-old female presented to ED for complaint of right upper quadrant abdominal pain. 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 She states she has not eaten anything this morning. She states the right upper abdominal pain goes through to her back between her shoulder blades. She states she went to her primary care doctor because she has had this pain for about a week and they sent her to the emergency room because they thought it was her gallbladder. Patient is alert oriented respirations regular and unlabored speaking in full sentences. She states she did start her menstrual cycle on Sunday. I have greeted and performed a rapid initial assessment of this patient. A comprehensive ED assessment and evaluation of the patient, analysis of test results and completion of medical decision making process will be conducted by an additional ED providers. Dictation of this chart was performed using voice recognition software; therefore, there may be some unintended grammatical errors. TRAVEL OUTSIDE OF THE [place] IN LAST 30 DAYS: No - Related Data Allergies/Adverse Reactions: codeine Allergy (Mild, Verified 04/16/19 10:05) sertraline [From Zoloft] Allergy (Mild, Verified 04/16/19 10:05) Past Medical History - Immunizations History of Influenza Vaccine for 08/2017 - 01/2018 Season: Yes Influenza Administration Date for 08/2017 - 01/2018 Season: 08/05/17 Physical Exam - Vital signs Vitals: Temp Pulse Resp BP Pulse Ox 98.3 F 88 14 129/80 H 100 04/16/19 10:09 04/16/19 10:04/16/19 10:09 04/16/19 10:09 04/16/19 10:09 Course - Vital Signs Vital signs: Temp Pulse Resp BP Pulse Ox 98.3 F 88 14 129/80 H 100 04/16/19 10:09 04/16/19 10:09 04/16/19 10:04/16/19 10:04/16/19 10:09 Doctor's Discharge - Discharge Referrals: LOCO JHA MD [Primary Care Provider] - Follow up as needed
[2019-04-16 10:40] LABS: ABSOLUTE EOSINOPHILS # (AUTO) 0.3 10^3/uL (0.0-0.6); ABSOLUTE MONOCYTES (AUTO) 0.5 10^3/uL (0.1-1.4); ABSOLUTE NEUT (AUTO) 2.7 10^3/uL (1.7-8.2); BASOPHILS % (AUTO) 0.5 % (0-2); EOSINOPHILS % (AUTO) 5.7 % (0-6); HEMATOCRIT 39.9 % (36.0-47.0); HEMOGLOBIN 13.3 g/dL (12.0-15.5); LYMPHOCYTES % (AUTO) 36.7 % (13-45); MEAN CORPUSCULAR HEMOGLOBIN 27.7 pg (27.0-33.4); MEAN CORPUSCULAR HGB CONC 33.5 g/dL (32.0-36.0); MEAN CORPUSCULAR VOLUME 83 fl (80-97); MONOCYTES % (AUTO) 9.6 % (3-13); PLATELET COUNT 196 10^3/uL (150-450); RED BLOOD COUNT 4.82 10^6/uL (3.72-5.28); RED CELL DISTRIBUTION WIDTH 13.2 % (11.5-14.0); SEGMENTED NEUTROPHILS % (AUTO) 47.5 % (42-78); TOTAL CELLS COUNTED % (AUTO) 100 %; WHITE BLOOD COUNT 5.6 10^3/uL (4.0-10.5)
[2019-04-16 11:03] LABS: ALANINE AMINOTRANSFERASE 30 U/L (9-52); ALBUMIN 4.5 g/dL (3.5-5.0); ALKALINE PHOSPHATASE 61 U/L (38-126); ANION GAP 9 (5-19); ASPARTATE AMINO TRANSFERASE 25 U/L (14-36); BILIRUBIN,DIRECT 0.2 mg/dL (0.0-0.4); BILIRUBIN,TOTAL 0.5 mg/dL (0.2-1.3); BLOOD UREA NITROGEN 9 mg/dL (7-20); CALCIUM 9.7 mg/dL (8.4-10.2); CARBON DIOXIDE 29 mmol/L (22-30); CHLORIDE 106 mmol/L (98-107); GLUCOSE 91 mg/dL (75-110); LIPASE 70.4 U/L (23-300); POTASSIUM 3.7 mmol/L (3.6-5.0); SODIUM 143.5 mmol/L (137-145); TOTAL PROTEIN 7.4 g/dL (6.3-8.2)
--- NOTE | 2019-04-16 11:20 | ER Document Report ---
ED GI/ - General Chief Complaint: Abdominal Pain Stated Complaint: STOMACH PAIN Time Seen by Provider: 04/16/19 10:13 Primary Care Provider: LOCO JHA MD [ACTIVE STAFF] - Follow up as needed Notes: Patient is here for pain primarily in the epigastric region this been present for a long time. She says is been there for many weeks, but is increasing in pain. Trying to go to her primary care provider today and was told to go to an urgent care. Went to an urgent care and they told her to come here. Patient says that she is not had any nausea or vomiting or diarrhea. She does have IBS and therefore takes MiraLAX which gives her some softer loose stools at times. Never seen any blood in her bowel movements. Never had any abdominal surgeries. Does not have any other medical conditions or problems. Denies any fever. No UTI symptoms. Started her current cycle on Sunday. TRAVEL OUTSIDE OF THE [place] IN LAST 30 DAYS: No - Related Data Allergies/Adverse Reactions: codeine Allergy (Mild, Verified 04/16/19 10:05) sertraline [From Zoloft] Allergy (Mild, Verified 04/16/19 10:05) Past Medical History - General Information source: Patient - Social History Smoking Status: Unknown if Ever Smoked Chew tobacco use (# tins/day): No Frequency of alcohol use: None Drug Abuse: None Family History: Reviewed & Not Pertinent Patient has suicidal ideation: No Patient has homicidal ideation: No GI Medical History: Reports: Hx Irritable Bowel Review of Systems - Review of Systems Notes: REVIEW OF SYSTEMS: CONSTITUTIONAL : Denies fever. EENT: Denies eye, ear, nose or mouth or throat pain or other symptoms. CARDIOVASCULAR: Denies chest pain. RESPIRATORY: Denies cough, chest congestion, or shortness of breath. GASTROINTESTINAL: See HPI. GENITOURINARY: Denies difficulty or painful urinating, urinary frequency, blood in urine. MUSCULOSKELETAL: Denies back or neck pain. Denies joint pain or swelling. SKIN: Denies rash or skin lesions. NEUROLOGICAL: Denies LOC or altered mental status. Denies headache. Denies sensory loss or motor deficits. ALL OTHER SYSTEMS REVIEWED AND NEGATIVE. Physical Exam - Vital signs Vitals: Temp Pulse Resp BP Pulse Ox 98.3 F 88 14 129/80 H 100 04/16/19 10:09 04/16/19 10:09 04/16/19 10:09 04/16/19 10:09 04/16/19 10:09 Interpretation: Normal Notes: PHYSICAL EXAMINATION: GENERAL: Well-appearing, in no acute distress. HEAD: Atraumatic, normocephalic. EYES: Pupils equal round and reactive to light, extraocular movements intact. ENT: oropharynx clear without exudates. Moist mucous membranes. NECK: Normal range of motion, supple. LUNGS: Breath sounds clear and equal bilaterally. HEART: Regular rate and rhythm without murmurs. ABDOMEN: Soft, nontender. No guarding or rebound. No masses. Patient says she feels a knot around her umbilicus. When palpating there, what she seems to be palpating his her aortic pulsations. I do not feel any other masses or knots present. She has an umbilical ring that she is had for 5 years without any complications or problems. It does not show any evidence of infection or other abnormality at this time. BACK: No tenderness throughout entire back. EXTREMITIES: Normal range of motion without pain. NEUROLOGICAL: Normal speech, normal gait. Normal sensory, motor, and reflex exams. Awake, alert, and oriented x3. PSYCH: Normal mood, normal affect. SKIN: Warm, dry, no rashes. Course - Re-evaluation Re-evalutation: 04/16/19 12:44 All labs were completely normal. - Vital Signs Vital signs: Temp Pulse Resp BP Pulse Ox 98.7 F 89 18 105/66 100 04/16/19 13:01 04/16/19 13:01 04/16/19 13:01 04/16/19 13:01 04/16/19 13:01 - Laboratory Result Diagrams: 04/16/19 10:25 04/16/19 10:25 - Diagnostic Test Radiology reviewed: Image reviewed, Reports reviewed - Ultrasound of the abdomen was normal. Discharge - Discharge Clinical Impression: Abdominal pain, Irritable bowel syndrome Condition: Stable Disposition: HOME, SELF-CARE Additional Instructions: ABDOMINAL PAIN: There are many causes of abdominal pain. Pain can mean a serious problem requiring surgery (such as appendicitis). It can also be an innocent problem that goes away on its own (such as a viral infection). Often, time must pass to determine the cause of pain. The physician does not feel that hospitalization is necessary, at present. Things may change within the next 24 hours. Call the doctor or come back for re- examination if any problems occur, such as: (1) Pain that becomes more severe, steady, or becomes concentrated in one specific area. Also, pain that is more severe with movement or coughing. (2) Vomiting that persists or becomes more frequent. (3) Blood in the vomitus, urine, or bowel movements. Blood in the stool may have a tarry or black appearance. (4) Shaking chills or fever greater than 100 degrees F. (5) The abdomen becomes more distended or swollen. (6) Bowel movements cease. (7) Failure to improve as expected. NORMAL EXAM AND WORKUP: At this time, your examination and workup show no significant abnormality. No significant abnormal physical findings are noted. All laboratory, EKG, and imaging (x-ray, CT scans, ultrasound) studies that were ordered show no significant abnormality. Although your examination and all studies that were ordered showed no significant abnormal finding, there are no examinations and no studies that are 100% accurate. There is always the possibility that some abnormality could exist and not be detected with physical examination or within the limits and capabilities of laboratory and other studies. You should return or follow up as you were instructed on your visit today for further evaluation if your symptoms do not resolve. Irritable Bowel Syndrome The cause of irritable bowel syndrome is unknown. Although often called "colitis", it is not an infection or inflammatory condition. Symptoms vary, but can include periodic abdominal cramping, migratory abdominal pains, diarrhea, or constipation. Commonly, a few days of constipation is followed by loose stools, then constipation begins again. There is no specific test for irritable bowel syndrome. The disease is diagnosed by history and exam findings, and by finding no evidence of other disease. Irritable bowel syndrome is treated by making the stool softer and bulkier. Regular meals, including plenty of soluble fiber, help. Avoid foods which provoke cramping. Stool "bulking agents," such as Metamucil, help. Expect occasional flare-ups. Call the physician if symptoms worsen, such as severe or constant abdominal pain, fever, blood in the stool, increasing constipation, or more frequent or severe diarrhea. ANTISPASMODICS: You have been given a prescription for an antispasmodic medicine. This type of drug is used to decrease cramping and pain in the intestines. It is also used to decrease secretion of internal fluids (such as stomach acid in ulcer disease or pancreatic juice in pancreas disease). This medicine may cause drowsiness, especially with the first dose. Do not operate machinery or drive until all side effects have resolved. Do not combine with alcohol. Other common side effects include dry mouth and eyes. In older persons, antispasmodics can occasionally cause urinary retention, constipation, or troub le focusing the eyes. Glaucoma may be worsened by this medicine. FOLLOW-UP CARE: If you have been referred to a physician for follow-up care, call the physicians office for an appointment as you were instructed or within the next two days. If you experience worsening or a significant change in your symptoms, notify the physician immediately or return to the Emergency Department at any time for re-evaluation. Follow-up with your primary care physician for gastrointestinal referral. Try the medication being prescribed. You only need to take it when you are having symptoms. It is an antispasmodic for cramping in the belly. Prescriptions: Dicyclomine HCl [Bentyl 20 mg Tablet] 20 mg PO QIDP PRN #30 tablet PRN Reason: Forms: Return to Work Referrals: LOCO JHA MD [ACTIVE STAFF] - Follow up as needed
--- NOTE | 2019-04-16 12:21 | RADIOLOGY REPORT (SQ) ---
EXAM DESCRIPTION: U/S ABDOMEN LIMITED W/O DOP COMPLETED DATE/TIME: 04/16/2019 12:04 pm REASON FOR STUDY: Right upper quad abdominal pain to back COMPARISON: None. TECHNIQUE: Dynamic and static grayscale images acquired of the abdomen and recorded on PACS. Additio ramiro selected color Doppler and spectral images recorded. LIMITATIONS: None. FINDINGS: PANCREAS: No masses. Visualized pancreatic duct normal caliber. LIVER: No masses. Echotexture normal. LIVER VASCULATURE: Normal directional flow of the main portal vein and hepatic veins. GALLBLADDER: No stones. Normal wall thickness. No pericholecystic fluid. ULTRASOUND-DETECTED MITCHELL'S SIGN: Negative. INTRAHEPATIC DUCTS AND COMMON DUCT: CBD and intrahepatic ducts normal caliber. No filling defects. INFERIOR VENA CAVA: Normal flow. AORTA: No aneurysm. The proximal iliac arteries are normal. RIGHT KIDNEY: Normal size, 10.4 cm. Normal echogenicity. No solid or suspicious masses. No hydroneph rosis. No calcifications. PERITONEAL AND RIGHT PLEURAL SPACE: No ascites or effusions. OTHER: No other significant findings. IMPRESSION: The study is normal. TECHNICAL DOCUMENTATION: JOB ID: [id number] [employer]- All Rights Reserved Reading location - IP/workstation name: [email or web address]
[2019-04-16 12:57] LABS: APPEARANCE,URINE CLEAR; BILIRUBIN,URINE NEGATIVE (NEGATIVE); COLOR,URINE YELLOW; GLUCOSE, URINE NEGATIVE (NEGATIVE); KETONES,URINE NEGATIVE (NEGATIVE); LEUKOCYTE ESTERASE,URINE NEGATIVE (NEGATIVE); NITRITE,URINE NEGATIVE (NEGATIVE); PROTEIN,URINE NEGATIVE (NEGATIVE); URINE SPECIFIC GRAVITY 1.021; UROBILINOGEN,URINE NEGATIVE mg/dL (<2.0)
[2019-04-16 13:05] VITALS: BP 105/66
== END 2019-04-16 13:04 | disposition home or self-care (01) ==
LOC: ER 10:05
DX: K58.9 Irritable bowel syndrome, unspecified (principal); R10.13 Epigastric pain; Z79.899 Other long term (current) drug therapy; Z88.8 Allergy status to other drugs, medicaments and biological substances; Z88.6 Allergy status to analgesic agent
CPT/HCPCS: 99284; 96360; 36415; 83690; 84703; 85025; 80053; 81001; 76705; J7030

== ENCOUNTER 2020-05-15 06:09 | Emergency (ER) | payer SELFPAY ==
[2020-05-15 07:46] VITALS: BP 109/75
--- NOTE | 2020-05-15 08:56 | ER Document Report ---
Entered by LAURITA TOM SCRIBE 05/15/20 0840 Acting as scribe for:NENA VILLALOBOS MD ED General - General Chief Complaint: Shortness Of Breath Stated Complaint: TROUBLE BREATHING/COUGH/SORE THROAT Time Seen by Provider: 05/15/20 07:40 Primary Care Provider: CHRISTOPHER HOLLY MD [Primary Care Provider] - Follow up as needed Information source: Patient Notes: This 24 year old female patient presents to the emergency department today with complaints of a cough and runny nose. Patient states she has been generally weak for x1 week and visited [place] last week. Patient states she had a strep test done before going to [place] and it was negative. Patient states for the past x5 days she has had a cough, sore throat, and runny nose with cloudy mucous. 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 Patient states she has a frontal headache and had a low grade fever yesterday. Patient states she only wants a covid test and does not want a chest scan because of financial reasons. TRAVEL OUTSIDE OF THE [place] IN LAST 30 DAYS: No - Related Data Allergies/Adverse Reactions: codeine Allergy (Mild, Verified 05/15/20 08:52) sertraline [From Zoloft] Allergy (Mild, Verified 05/15/20 08:52) Past Medical History - General Information source: Patient - Social History Smoking Status: Never Smoker Cigarette use (# per day): No Chew tobacco use (# tins/day): No Frequency of alcohol use: None Drug Abuse: None Lives with: Family Family History: Reviewed & Not Pertinent Patient has homicidal ideation: No GI Medical History: Reports: Hx Irritable Bowel Review of Systems - Review of Systems Constitutional: See HPI, Fever, Weakness EENT: See HPI, Throat pain, Other - Runny nose Cardiovascular: No symptoms reported Respiratory: See HPI, Cough Gastrointestinal: No symptoms reported Genitourinary: No symptoms reported Female Genitourinary: No symptoms reported Musculoskeletal: No symptoms reported Skin: No symptoms reported Hematologic/Lymphatic: No symptoms reported Neurological/Psychological: See HPI, Headaches -: Yes All other systems reviewed and negative Physical Exam - Vital signs Vitals: Temp Pulse BP Pulse Ox 98.1 F 74 129/89 H 100 05/15/20 06:15 05/15/20 06:15 05/15/20 06:15 05/15/20 06:15 - General General appearance: Appears well, Alert - HEENT Head: Normocephalic, Atraumatic Eyes: Normal Pupils: PERRL Ears: Normal External canal: Other - R pink Tympanic membrane: Bulging - R Pharynx: Erythema - bilateral. No: Exudate, Tonsillar hypertrophy Notes: Prominent lymph node on right anterior neck. Patient states she has seen a physician for this already and has done a biopsy. - Respiratory Respiratory status: No respiratory distress Chest status: Nontender Breath sounds: Normal Chest palpation: Normal - Cardiovascular Rhythm: Regular Heart sounds: Normal auscultation Murmur: No - Abdominal Inspection: Normal Distension: No distension Bowel sounds: Normal Tenderness: Nontender - Extremities General upper extremity: Normal inspection. No: Edema General lower extremity: Normal inspection. No: Edema - Neurological Neuro grossly intact: Yes Cognition: Normal Orientation: AAOx4 Speech: Normal - Psychological Associated symptoms: Normal affect, Normal mood - Skin Skin Temperature: Warm Skin Moisture: Dry Skin Color: Normal Course - Re-evaluation Re-evalutation: 05/15/20 08:50 Patient does states that she did not want any further work-up done other than a COVID test because it is necessary that she be tested in order to return to work. Patient reports that she does not have any insurance therefore she is not interested in creating a a bill with the hospital with the testing that perhaps as I explained to her and should be done. Patient complains of a sore throat runny nose headache fever cough and I explained the patient that she is also had some recent travel to [place] just prior to her illness. Nonetheless patient reports that she did not want any further work-up other than a COVID test and in her preference a rapid test I explained the patient and the rapid testing is reserved for extreme cases when patients are having to be admitted to the hospital or going immediately to surgery. - Vital Signs Vital signs: Temp Pulse Resp BP Pulse Ox 98.1 F 74 13 109/75 100 05/15/20 06:15 05/15/20 06:15 05/15/20 07:01 05/15/20 07:00 05/15/20 07:01 05/15/20 08:52 Vital signs stable. Discharge - Discharge Clinical Impression: Upper respiratory infection Condition: Stable Disposition: HOME, SELF-CARE Instructions: Upper Respiratory Illness ([facility]) Additional Instructions: You were tested today for COVID-19 due to your symptoms. There will be several days may be up to 4 days before that result is report back to us in you. Meanwhile you need to be self quarantine for a total of 14 days should she turn positive. But until you get your report back you need to self quarantine until further instructions should you become negative then you may discontinue you your quarantine and if you are asymptomatic you may then be allowed to return to work I will write you a work note for the next 4 days so that you are covered during the time. That way waiting for your test results. Should you worsen or have any other problems with your upper respiratory infection is currently going on now please do not hesitate to follow-up with your primary care doctor or retu rn to the emergency department. I recommend that you take Advil Cold and Sinus as needed for your pain fever and congestion. Prescriptions: Azithromycin [Zithromax 250 mg Tablet] 250 mg PO ASDIR PRN #6 tablet PRN Reason: Referrals: CHRISTOPHER HOLLY MD [Primary Care Provider] - Follow up as needed I personally performed the services described in the documentation, reviewed and edited the documentation which was dictated to the scribe in my presence, and it accurately records my words and actions.
== END 2020-05-15 09:25 | disposition home or self-care (01) ==
LOC: ER 06:09
DX: J06.9 Acute upper respiratory infection, unspecified (principal); R05 Cough; R09.89 Other specified symptoms and signs involving the circulatory and respiratory systems; R53.1 Weakness; J02.9 Acute pharyngitis, unspecified; R51 Headache; R50.9 Fever, unspecified; Z20.828 Contact with and (suspected) exposure to other viral communicable diseases; Z88.6 Allergy status to analgesic agent; Z88.5 Allergy status to narcotic agent; Z88.8 Allergy status to other drugs, medicaments and biological substances
CPT/HCPCS: 99283; 87635; C9803